=== PATIENT | male | born 1965 | race Caucasian/White ===

== ENCOUNTER → 2017-03-31 | Outpatient (CLI) | payer BC ==
--- NOTE | 2017-04-01 07:38 | RAD ---
HISTORY: Epigastric pain with dysphagia Study: Barium swallow Comparison: None available Technique: Multiple fluoroscopic images of the esophagus were obtained during the administration of oral barium. Findings: The swallowing mechanism is grossly unremarkable. The thoracic esophagus demonstrates decreased stre ngth of primary esophageal wave/contraction with residual contrast noted within the esophagus after initial swallow. No tertiary waves were identified during the examination. There was no extrinsic or intrinsic mass lesion. There is no significant hiatal hernia with minimal reflux elicited during t he examination. The 12.5 mm barium tablet passed easily into the stomach. The total fluoroscopy time utilized was 2.47 minutes. IMPRESSION: 1. Decreased primary esophageal peristalsis consistent with dysmotility of the esophagus. No mucosa l irregularity or mass identified within the esophagus. 2. Minimal gastroesophageal reflux. Reported By:
== END | disposition home or self-care (01) | DRG 392 ==
LOC: RAD 09:33
PROVIDERS: ATTEND Internal Medicine
DX: R13.19 Other dysphagia (principal); R10.13 Epigastric pain; R06.02 Shortness of breath; K21.9 Gastro-esophageal reflux disease without esophagitis
CPT/HCPCS: 70370